=== PATIENT | female | born 1950 | race Caucasian/White ===

== ENCOUNTER 2017-12-08 10:09 | Outpatient (CLI) | payer MEDICARE, OTHER | END 2017-12-08 10:10 | disposition home or self-care (01) | LOC: BICRAD 10:09 | PROVIDERS: ATTEND Podiatrist | DX: R22.41 Localized swelling, mass and lump, right lower limb (principal); M81.0 Age-related osteoporosis without current pathological fracture; M19.071 Primary osteoarthritis, right ankle and foot; M20.11 Hallux valgus (acquired), right foot ==